=== PATIENT | female | born 1975 | race Caucasian/White ===

== ENCOUNTER 2017-04-09 09:40 | Emergency (ER) | payer MEDICAID ==
[~2017-04-09] VITALS: Ht 157.5 cm; Wt 56.7 kg
--- NOTE | 2017-04-09 09:44 | NUR ---
PT BIBA TO BED 8.
[2017-04-09 09:45] VITALS: BP 118/73
--- NOTE | 2017-04-09 09:47 | NUR ---
42F BIBA FROM HOME C/O LEFT UPPER TOOTHACHE, ACHING, RADIATES TO FACE, 10/10 X TODAY; PT A&OX4, PERRLA, BL LUNG SOUNDS CLEAR, RR EVEN/UNLABORED, SKIN IS WARM/DRY/INTACT AT THIS TIME; PT DENIES N/V/D AT THIS TIME; PT PLACED ON MONITOR, RESTING IN BED W/ HOB ELEVATED AND IN LOWEST POSITION; POSITIONED FOR COMFORT; ER MD MADE AWARE OF STATUS. WILL CONTINUE TO MONITOR.
--- NOTE | 2017-04-09 09:49 | NUR ---
LIZBETH HUTCHISON EVALUATING PT AT BEDSIDE.
[2017-04-09] MEDS ORDERED: ACETAMINOPHEN EXTRA STRENGTH 500 MG TAB ONE (09:53)
[2017-04-09] MEDS ORDERED: DEXAMETHASONE 10 MG/ML VIAL IVP ONE (09:55)
[2017-04-09] MEDS ORDERED: CLINDAMYCIN 900 MG in DEXTROSE 5% 100 ML IV ONE (09:55)
[2017-04-09] MEDS ORDERED: NACL 0.9% 1,000 ML IV ONE (09:55)
[2017-04-09] MEDS ORDERED: CLINDAMYCIN 900 MG/6 ML VIAL IV ONE (10:04)
[2017-04-09] MEDS ORDERED: MORPHINE SULFATE 4 MG/ML SYR IVP ONE (10:20)
--- NOTE | 2017-04-09 12:05 | NUR ---
IV removed, catheter intact and site benign. Applied folded 4x4 gauze and tape to stop bleeding. PT TOLERATED PROCEDURE WELL.
--- NOTE | 2017-04-09 12:08 | NUR ---
ER MD DR. HUTCHISON RE-EVALUATING PT AT BEDSIDE.
[2017-04-09 12:10] VITALS: BP 111/66
--- NOTE | 2017-04-09 12:10 | NUR ---
Patient discharged with v/s stable. Written and verbal after care instructions given and explained. Patient alert, oriented and verbalized understanding of instructions. Ambulatory with steady gait. All questions addressed prior to discharge. ID band removed. Patient advised to follow up with PMD. Rx of CLINDAMYCIN HYDROCHLORIDE 300MG CAP, MOTRIN 600MG TAB & PERIDEX 0.12% given. Patient educated on indication of medication including possible reaction and side effects. Opportunity to ask questions provided and answered.
== END 2017-04-09 12:10 | disposition home or self-care (01) ==
LOC: MED 09:42
DX: K04.7 Periapical abscess without sinus (principal)
CPT/HCPCS: 36415; 80053; 81002; 81025; 85025; 96365; 96375; 99284; J1100; J2270; J3490; J7030